=== PATIENT | female | born 1970 | race African-American/Black ===

== ENCOUNTER 2017-06-16 23:49 | Emergency (ER) | payer BC, OTHER ==
[~2017-06-16] VITALS: Ht 172.7 cm; Wt 117.9 kg
--- NOTE | ~2017-06-16 | EKG ---
[place] [address] [facility] [employer] [place] [address] ELECTROCARDIOGRAM REPORT Name: JANETCICI Franklin 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
[~2017-06-16 23:49] MED LIST: AMLODIPINE BESY10 MG PO; ASPIR 8181 MG PO; CHLORTHALIDONE25 MG PO; IRON325 PO; LIPITOR 20 MG T20 M1 PO; METFORMIN HCL1000 MG PO; PROTONIX40 M1 PO; TOPROL XL100 MG PO; VITAMIN D2000 UNIT PO
[2017-06-17 00:23] LABS: ABSOLUTE NEUTROPHILS 6.8 thou/uL (1.4-8.2); BASOPHILS 0.8 % (0.0-2.0); EOSINOPHILS 1.4 % (0.0-3.0); HEMATOCRIT 30.7 % (37.0-47.0); HEMOGLOBIN 10.1 gm/dL (12.0-15.0); LYMPHOCYTES 30.7 % (24.0-44.0); MCH 20.7 pg (26.0-34.0); MCHC 32.9 g/dL (28.0-37.0); MCV 62.9 fL (80.0-100.0); MONOCYTES 6.3 % (1.0-8.0); PLATELET COUNT 382 thou/uL (150-400); POLYS 60.8 % (36.0-66.0); RBC 4.89 mil/uL (4.20-5.00); WBC 11.3 thou/uL (4.0-11.0)
[2017-06-17 00:28] LABS: ANION GAP 8 mmol/L (7-16); BUN 14 mg/dL (7-18); CALCIUM 9.6 mg/dL (8.5-10.1); CHLORIDE 104 mmol/L (98-107); CO2 30 mmol/L (21-32); CREATININE 0.9 mg/dL (0.6-1.0); GLUCOSE 124 mg/dL (74-106); POTASSIUM 3.5 mmol/L (3.5-5.1); SODIUM 142 mmol/L (136-145)
[2017-06-17 00:29] LABS: MANUAL DIFF NO
[2017-06-17 00:31] LABS: APTT 27.8 Seconds (24.5-32.8)
[2017-06-17 00:36] LABS: ALBUMIN 3.3 g/dL (3.4-5.0); ALKALINE PHOSPHATASE 132 U/L (46-116); MAGNESIUM 1.3 mg/dL (1.8-2.4); SGOT 13 U/L (15-37); SGPT 18 U/L (30-65); TOTAL BILIRUBIN 0.2 mg/dL (<0.1-1.0); TROPONIN-I < 0.04 ng/mL (<0.04-0.07)
[2017-06-17] MEDS ORDERED: MAG-OXIDE400 MG PO (01:00)
[2017-06-17 01:43] VITALS: BP 108/77
[2017-06-17 02:21] LABS: ANISOCYTOSIS 3+; TARGET CELLS 1+
[2017-06-17 02:22] LABS: HYPOCHROMASIA 1+; MICROCYTES 2+
== END 2017-06-17 01:44 | disposition home or self-care (01) ==
LOC: ER 23:49
PROVIDERS: Emergency Medicine
DX: K21.0 Gastro-esophageal reflux disease with esophagitis (principal); E83.42 Hypomagnesemia; R07.89 Other chest pain; I10 Essential (primary) hypertension; E11.9 Type 2 diabetes mellitus without complications; F10.99 Alcohol use, unspecified with unspecified alcohol-induced disorder; Z77.22 Contact with and (suspected) exposure to environmental tobacco smoke (acute) (chronic)

== ENCOUNTER 2019-01-08 09:43 | Emergency (ER) | payer BC ==
[~2019-01-08] VITALS: Ht 172.7 cm; Wt 120.2 kg
[~2019-01-08 09:43] MED LIST changes: +CARAFATE 1 GM TA1 G1 PO; +MAG-OXIDE400 MG PO; +PANTOPRAZOLE SO40 M1 PO
[2019-01-08] MEDS ORDERED: IMDUR 30 MG TAB30 M1 PO (11:23)
[2019-01-08] MEDS ORDERED: CHLORTHALIDONE25 MG PO (11:43)
[2019-01-08 11:45] VITALS: BP 114/69
--- NOTE | 2019-01-09 08:33 | EKG ---
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 : 1970 Requested By: Niki Cheng Order Number: [id number] MD: Gavin Luevano Measurements Intervals Ethel Rate: 72 P: 61 ND: 189 QRS: 39 QRSD: 86 T: 33 QT: 372 QTc: 408 Interpretive Statements Sinus rhythm Low voltage, precordial leads normal tracing Compared to ECG 08/20/2017 20:24:39 No significant change was found Electronically Signed On 01-09-2019 8:33:27 CDT by Gavin Luevano [email or web address] ��������������������������������������������� <ELECTRONICALLY SIGNED> ���������������������������������������� By: Gavin Luevano MD, [facility] ��������������������������������������������� 01/09/19 0833 1029 1029 Gavin Luevano MD, FACC /EPI
== END 2019-01-08 11:50 | disposition home or self-care (01) ==
LOC: ER 09:43
DX: I10 Essential (primary) hypertension (principal); E11.9 Type 2 diabetes mellitus without complications

== ENCOUNTER 2020-03-30 03:16 | Emergency (ER) | payer OTHER ==
[~2020-03-30] VITALS: Ht 172.7 cm; Wt 122.5 kg
[~2020-03-30 03:16] MED LIST changes: +IMDUR 30 MG TAB30 M1 PO
[2020-03-30] MEDS ORDERED: MAGNESIUM250 MG PO (03:34)
[2020-03-30 04:13] LABS: URINE BILIRUBIN NEGATIVE (Negative); URINE BLOOD 3+ (Negative); URINE CLARITY SL CLOUDY; URINE COLOR YELLOW; URINE GLUCOSE-RANDOM* NEGATIVE (Negative); URINE KETONES NEGATIVE (Negative); URINE LEUKOCYTES-REFLEX NEGATIVE (Negative); URINE NITRITE-REFLEX NEGATIVE (Negative); URINE PROTEIN (DIPSTICK) NEGATIVE (Negative); URINE SPECIFIC GRAVITY 1.025 (1.005-1.035); URINE UROBILINOGEN 0.2 E.U./dl (0.2-1.0)
[2020-03-30 04:13] LABS: ABSOLUTE NEUTROPHILS 8.7 thou/uL (1.4-8.2); BASOPHILS 0.6 % (0.0-2.0); EOSINOPHILS 1.3 % (0.0-3.0); HEMOGLOBIN 10.7 gm/dL (12.0-15.0); LYMPHOCYTES 25.4 % (24.0-44.0); MCH 21.3 pg (26.0-34.0); MCHC 32.4 g/dL (28.0-37.0); MCV 65.7 fL (80.0-100.0); MONOCYTES 5.9 % (1.0-8.0); PLATELET COUNT 388 thou/uL (150-400); POLYS 66.8 % (36.0-66.0); RBC 5.03 mil/uL (4.20-5.00); RDW 18.3 % (10.5-14.5)
[2020-03-30 04:15] LABS: CALCIUM 9.2 mg/dL (8.5-10.1); CREATININE 1.3 mg/dL (0.6-1.0); POTASSIUM 3.3 mmol/L (3.5-5.1)
[2020-03-30 04:21] LABS: ALBUMIN 3.3 g/dL (3.4-5.0); TOTAL BILIRUBIN 0.4 mg/dL (0.2-1.0); TOTAL PROTEIN 8.1 g/dL (6.4-8.2)
[2020-03-30 04:32] LABS: BACTERIA-REFLEX 1-9 Few /HPF (None Seen); CASTS None Seen /LPF (None Seen); CRYSTALS None Seen /LPF (None Seen); MUCUS 4-6 Moderate strn/LPF (None Seen); SQUAMOUS 4-10 Moderate /LPF (0-3); URINE WBC-REFLEX 0-5 Rare /HPF (0-5)
[2020-03-30 04:56] VITALS: BP 110/57
[2020-03-30] MEDS ORDERED: ZOFRAN ODT4 MG PO (05:02)
[2020-03-30] MEDS ORDERED: PERCOCET 5-3251 EACH PO (05:02)
== END 2020-03-30 05:19 | disposition home or self-care (01) ==
LOC: ER 03:16
PROVIDERS: Emergency Medicine
DX: N20.0 Calculus of kidney (principal); I10 Essential (primary) hypertension; E11.9 Type 2 diabetes mellitus without complications; Z87.891 Personal history of nicotine dependence; Z79.899 Other long term (current) drug therapy

== ENCOUNTER 2021-08-22 20:47 | Emergency (ER) | payer OTHER ==
[~2021-08-22] VITALS: Ht 172.7 cm; Wt 122.0 kg
[~2021-08-22 20:47] MED LIST changes: +MAGNESIUM250 MG PO; +PERCOCET 5-3251 EACH PO; +ZOFRAN ODT4 MG PO
[2021-08-22 22:00] VITALS: BP 128/61
== END 2021-08-22 22:00 | disposition home or self-care (01) ==
LOC: ER 20:47
DX: I10 Essential (primary) hypertension (principal); R51.9 Headache, unspecified; E11.9 Type 2 diabetes mellitus without complications; M10.9 Gout, unspecified; Z79.84 Long term (current) use of oral hypoglycemic drugs; Z79.82 Long term (current) use of aspirin; Z79.891 Long term (current) use of opiate analgesic; Z79.899 Other long term (current) drug therapy